=== PATIENT | male | born 1995 | race Two or more races ===

== ENCOUNTER 2024-06-05 20:52 | Inpatient (IN) | payer OTHER ==
[~2024-06-05] VITALS: Ht 167.6 cm; Wt 59.0 kg
--- NOTE | 2024-06-05 22:00 | NUR ---
BIBS FOR A "PIMPLE" ON THE SACRAL AREA.
[2024-06-05] MEDS ORDERED: IOHEXOL-300 100 ML VIAL IV ONE (22:45)
[2024-06-05] MEDS ORDERED: IV NS 0.9% 250 ML IV ONE (22:45)
--- NOTE | 2024-06-05 22:45 | NUR ---
18g Established in the RAC . Blood drawn labeled at bedside and sent to lab for processing
[2024-06-05 23:32] LABS: BASOPHILS % (AUTO) 0.4 % (0.0-2.0); EOSINOPHILS # (AUTO) 0.1 K/uL (0.0-0.7); EOSINOPHILS % (AUTO) 0.7 % (0.0-6.0); HEMATOCRIT 42 % (39-51); HEMOGLOBIN 14.2 g/dL (13.5-17.5); LYMPHOCYTES # (AUTO) 2.8 K/uL (0.8-4.8); LYMPHOCYTES % (AUTO) 35.6 % (20.0-44.0); MEAN CORPUSCULAR HEMOGLOBIN 31 PG (26.0-33.0); MEAN CORPUSCULAR HGB CONC 34 g/dl (31.0-36.0); MEAN CORPUSCULAR VOLUME 92 fL (80-96); MONOCYTES # (AUTO) 0.5 K/uL (0.1-1.30); MONOCYTES % (AUTO) 5.9 % (2.0-12.0); NEUTROPHILS # (AUTO) 4.4 K/uL (1.8-8.9); NEUTROPHILS % (AUTO) 57.4 % (43.0-81.0); PLATELET COUNT (AUTO) 206 K/uL (150-450); RED BLOOD CELL COUNT(AUTO) 4.58 MIL/uL (4.5-6.0); RED CELL DISTRIBUTION WIDTH 13.5 % (11.5-15.0); WHITE BLOOD COUNT (AUTO) 7.8 K/uL (4.3-11.0)
--- NOTE | 2024-06-05 23:34 | NUR ---
Patient to CT via [facility]
[2024-06-05 23:41] LABS: CALCIUM, SERUM 9.1 mg/dL (8.5-10.1); CREATININE 1.3 mg/dL (0.6-1.3); POTASSIUM 3.7 mmol/L (3.5-5.1)
--- NOTE | 2024-06-06 00:20 | NUR ---
DR RIGGINS, SURGOEN AT BED SIDE
--- NOTE | 2024-06-06 00:27 | NUR ---
S/W DOREEN HOLM , PROVIDED W/ VERBAL CLINICALS, AUTH TO ADMIT GIVEN, AUTH#[id number]
[2024-06-06] MEDS: CIPROFLOXACIN IV RTU 400 MG in PREMIX 1 EA IV SCH ×2 (00:30→09:03)
[2024-06-06] MEDS: FLAGYL/NS RTU 500 MG/100 ML PIGGYBACK IV ONE (00:30)
[2024-06-06] MEDS ORDERED: CIPROFLOXACIN IV RTU 200 ML IV ONE (00:39)
[2024-06-06] MEDS ORDERED: METRONIDAZOLE 500MG/ NS 100ML 100 ML IV ONE ×2 (00:39→05:24)
--- NOTE | 2024-06-06 01:03 | NUR ---
report given to AMARIS SALINAS
--- NOTE | 2024-06-06 01:40 | NUR ---
transferred patient to room 314
[2024-06-06 01:42] VITALS: BP 125/77; TEMP 98.8; O2SAT 100
--- NOTE | 2024-06-06 01:42 | NUR ---
[employer] NOTES RECEIVED PATIENT FROM ER VIA [facility], REPORT GIVEN BY EDNA SALINAS. A/OX4 ABLE TO MAKE NEEDS KNOWN. PATIENT ORIENTED TO ROOM AND CALL LIGHT SYSTEM. ON ROOM AIR, TOLERATING WELL. NO RESPIRATORY DISTRESS NOTED. IV ACCESS AT RAC #18G SL, INTACT AND PATENT. VS TAKEN BP AT 125/77 HR 66 RR 18 TEMP 98.8 SPO2 98%. SKIN IS INTACT. NO WOUNDS NOTED. SAFETY PRECAUTIONS OBSERVED. WILL CONTINUE TO MONITOR.
--- NOTE | 2024-06-06 02:11 | NUR ---
RN NOTE TRANSFERRED PT TO ROOM 320-2
[2024-06-06] MEDS ORDERED: MAG HYDROX/AL HYDROX/SIMETH 30 ML UDC PO PRN (02:30)
[2024-06-06] MEDS ORDERED: MAGNESIUM HYDROXIDE 30 ML UDC PO PRN (02:30)
[2024-06-06] MEDS: IV LR 1000 ML 1,000 ML IV SCH ×2 (02:36→19:59)
[2024-06-06 04:45] VITALS: BP 125/77; TEMP 98.8; O2SAT 100
[2024-06-06] MEDS: METRONIDAZOLE 500MG/ NS 100ML 500 MG in PREMIX 1 EA IV SCH (05:43)
--- NOTE | 2024-06-06 06:43 | NUR ---
RN CLOSING NOTES PATIENT LYING ON BED, A/OX 4 ON ROOM AIR, TOLERATING WELL. NOT IN RESPIRATORY DISTRESS, NO PAIN AND DISCOMFORT AT THIS TIME. WITH IV ACCESS AT RIGHT ANTECUBITAL #18G WITH LR AT 100ML/HR. INTACT AND PATENT. DUE MEDICATIONS GIVEN. SAFETY MEASURES OBSERVED AND MAINTAINED. ENDORSED FOR MERE.
[2024-06-06 07:44] LABS: MAGNESIUM 1.8 mg/dL (1.8-2.4); PHOSPHORUS 4.2 mg/dL (2.5-4.9)
[2024-06-06 08:00] VITALS: BP 100/66; TEMP 97.3; O2SAT 99
--- NOTE | 2024-06-06 08:00 | NUR ---
received pt. in rm.npo for surgery.iv infusing.denies discomfort.siderails up
--- NOTE | 2024-06-06 09:00 | NUR ---
texted dr. sarmiento for surgical orders.
[2024-06-06] MEDS: PANTOPRAZOLE 40 MG VIAL IV SCH (09:06)
[2024-06-06 09:20] LABS: INR 1.03 (0.91-1.10); PARTIAL THROMBOPLASTIN TIME 27.3 SEC (24.3-34.3); PROTHROMBIN TIME 10.9 SECS (9.2-11.1)
--- NOTE | 2024-06-06 09:30 | NUR ---
npo since midnight.iv infusing.
[2024-06-06] MEDS: ONDANSETRON HCL/PF 4 MG/2 ML VIAL IVP PRN (12:43)
[2024-06-06] MEDS ORDERED: INSULIN REGULAR, HUMAN 100 UNIT/ML 3 ML VIAL SQ PRN (13:30)
[2024-06-06] MEDS ORDERED: *INSULIN REGULAR(HUMULIN R)HUM 100 UNIT/ML VIAL SQ PRN (13:30)
[2024-06-06] MEDS ORDERED: DEXTROSE 50%-WATER 50 ML DISP.SYRIN IV PRN (13:30)
[2024-06-06 16:00] VITALS: BP 102/60; TEMP 98.4; O2SAT 97
[2024-06-06] MEDS ORDERED: ANESTHESIA TRAY IN PYXIS 1 EA TRAY MC ONE (16:24)
--- NOTE | 2024-06-06 16:50 | NUR ---
left via bed to or.had cipro and flagyl meds.voided.
[2024-06-06] MEDS ORDERED: MIDAZOLAM HCL 2 MG/2ML VIAL ONE (16:55)
[2024-06-06] MEDS ORDERED: FENTANYL PF 100MCG/2ML AMPUL ONE (16:55)
[2024-06-06] MEDS ORDERED: LIDOCAINE 1% INJ 50 ML MDV IJ ONE (17:18)
[2024-06-06] MEDS ORDERED: BUPIVACAINE MPF 0.5% W/EPI INJ 30 ML VIAL ONE ×2 (17:18→17:19)
[2024-06-06] MEDS ORDERED: BUPIVACAINE MPF W/EPI 0.25% 30 ML VIAL ONE (17:19)
--- NOTE | 2024-06-06 18:15 | NUR ---
returned to rm. from surg.vitals stable siderails up hob elevated.bulky dressing dry and intact.instructed pt. not to remove.no c/o pain or nausea. ns iv completed and lr iv started.taking ice chips and sm.sips of water.food ordered
[2024-06-06] MEDS: BLOOD SUGAR DIAGNOSTIC 1 EACH STRIP VI SCH (18:44)
--- NOTE | 2024-06-06 19:30 | NUR ---
MS RN OPENING NOTES RECEIVED PATIENT AWAKE IN BED. PATIENT IS A/O TIMES 4. MALAYSIAN SPEAKER. ABLE TO MAKE NEEDS KNOWN. NO PAIN NOTED. NO SOB NOTED. NO DISTRESS NOTED. ON ROOM AIR. S/P OF THE SURGERY OF THE PERINEAL ABSCESS. DRESSING INTACT AND PATENT. NO BLEEDING NOTED AT THE SITE. IV ACCESS ON THE RAC # 18 INTACT AND RUNNING CURRENTLY LR AT 50 ML/HR. ALL NEEDS ATTENDED. REMINDED THE PATIENT TO PRESS CALL LIGHT FOR ASSISTANCE. PATIENT VERBALIZED UNDERSTANDING. ALL SAFETY MEASURES IN PLACE. BED LOCKED IN THE LOWEST POSITION. CALL LIGHT AND TABLE IN EASY REACH.SIDE RAILS UP TIMES 2. PLAN OF CARE IS ONGOING.
[2024-06-06] MEDS: GABAPENTIN 100 MG CAPSULE PO SCH (19:51)
[2024-06-06] MEDS: CELECOXIB 100 MG CAPSULE PO SCH (19:51)
[2024-06-06] MEDS: ACETAMINOPHEN 325 MG TABLET PO SCH (19:51)
[2024-06-06 20:10] VITALS: BP 108/63; TEMP 97.9; O2SAT 97
[2024-06-06 20:39] VITALS: BP 108/63; TEMP 97.9; O2SAT 97
--- NOTE | 2024-06-06 23:00 | NUR ---
RN NOTES BLOOD SUGAR CHECKED NOTED 81. NO INSULIN COVERAGE.
--- NOTE | 2024-06-07 06:30 | NUR ---
MS RN CLOSING NOTES PATIENT AWAKE IN BED. PATIENT IS A/O TIMES 4. GERMAN SPEAKER. ABLE TO MAKE NEEDS KNOWN. NO PAIN NOTED. NO SOB NOTED. NO DISTRESS NOTED. ON ROOM AIR. S/P OF THE SURGERY OF THE PERINEAL ABSCESS. DRESSING INTACT AND PATENT. NO BLEEDING NOTED AT THE SITE. IV ACCESS ON THE RAC # 18 INTACT AND RUNNING CURRENTLY LR AT 50 ML/HR. ALL NEEDS ATTENDED. BLOOD SUGAR CHECK NOTED 150. PATIENT ATE PRIOR SUGAR CHECK . AND STATED HE NEVER HAD DIABETIC HISTORY. NO INSULIN GIVEN. ALL DUE MEDS GIVEN. REMINDED THE PATIENT TO PRESS CALL LIGHT FOR ASSISTANCE. PATIENT VERBALIZED UNDERSTANDING. ALL SAFETY MEASURES IN PLACE. BED LOCKED IN THE LOWEST POSITION. CALL LIGHT AND TABLE IN EASY REACH.SIDE RAILS UP TIMES 2. PLAN OF CARE IS ONGOING. WILL ENDORSE FOR MERE.
[2024-06-07 06:37] LABS: BASOPHILS % (AUTO) 0.6 % (0.0-2.0); EOSINOPHILS # (AUTO) 0.1 K/uL (0.0-0.7); EOSINOPHILS % (AUTO) 1.2 % (0.0-6.0); HEMATOCRIT 37 % (39-51); HEMOGLOBIN 12.6 g/dL (13.5-17.5); LYMPHOCYTES % (AUTO) 33.1 % (20.0-44.0); MEAN CORPUSCULAR HEMOGLOBIN 31 PG (26.0-33.0); MEAN CORPUSCULAR HGB CONC 34 g/dl (31.0-36.0); MEAN CORPUSCULAR VOLUME 90 fL (80-96); MONOCYTES # (AUTO) 0.7 K/uL (0.1-1.30); MONOCYTES % (AUTO) 10.9 % (2.0-12.0); NEUTROPHILS # (AUTO) 3.3 K/uL (1.8-8.9); NEUTROPHILS % (AUTO) 54.2 % (43.0-81.0); PLATELET COUNT (AUTO) 172 K/uL (150-450); RED BLOOD CELL COUNT(AUTO) 4.13 MIL/uL (4.5-6.0); RED CELL DISTRIBUTION WIDTH 13.5 % (11.5-15.0); WHITE BLOOD COUNT (AUTO) 6.1 K/uL (4.3-11.0)
--- NOTE | 2024-06-07 07:20 | NUR ---
ms rn patient is awake,alert,oriented x4, not in any form of distress, respirations even and unlabored,no sob noted, patient came w/ perianal abscess, s/p incision and drainage by dr. sarmiento w/ dressing intact small old drain noted, denies pain ,on iv antibiotics,no fever,no nausea,tolerating diet well ,all needs attended.
[2024-06-07 07:35] LABS: CALCIUM, SERUM 8.6 mg/dL (8.5-10.1); CREATININE 1.4 mg/dL (0.6-1.3)
[2024-06-07] MEDS ORDERED: IV LR 1000 ML 1,000 ML IV PRN (07:58)
[2024-06-07 08:27] VITALS: BP 87/50; TEMP 97.5; O2SAT 99
[2024-06-07] MEDS: PANTOPRAZOLE 40 MG TABLET.DR PO SCH (09:33)
--- NOTE | 2024-06-07 10:00 | NUR ---
ms rn was seen by dr. sarmiento and devang garcia, anticipating discharge today w/ home health, will follow up.
[2024-06-07] MEDS ORDERED: METR500T PO (11:56)
[2024-06-07] MEDS ORDERED: CIPR500S2 PO (11:56)
[2024-06-07] MEDS ORDERED: GABA100C PO (11:56)
[2024-06-07] MEDS ORDERED: CELE100C PO (11:56)
== END 2024-06-07 19:30 | disposition home or self-care (01) | DRG 226 ==
LOC: ER 20:58 → MED 06-06 00:49
PROVIDERS: ADMIT Student in an Organized Health Care Education/Training Program; ATTEND Student in an Organized Health Care Education/Training Program
PROC: 0D9Q0ZZ Drainage of Anus, Open Approach (ICD-10-PCS; principal; 2024-06-06)
DX: K61.0 Anal abscess (principal); N17.9 Acute kidney failure, unspecified; E11.9 Type 2 diabetes mellitus without complications; D64.9 Anemia, unspecified; M89.8X9 Other specified disorders of bone, unspecified site
CPT/HCPCS: 36415; 72193-TC; 80048-TC; 82962-TC; 83735-TC; 84100-TC; 85025-TC; 85730-TC; 98960; A4216; A4223; A6253; G0378; J0690; J0744; J1815; J1885; J2250; J2405; J2470; J2704; J2765; J3010; J3490; J7030; J7050; J7120; Q9967

== ENCOUNTER 2025-04-01 19:30 | Emergency (ER) | payer OTHER ==
[~2025-04-01] VITALS: Ht 167.6 cm; Wt 67.1 kg
[~2025-04-01 19:30] MED LIST: CELE100C PO; CIPR500S2 PO; GABA100C PO; METR500T PO
[2025-04-01 19:40] VITALS: BP 124/70; TEMP 98.4; O2SAT 97
== END 2025-04-01 20:00 | disposition home or self-care (01) ==
LOC: ER 19:30
DX: Z20.2 Contact with and (suspected) exposure to infections with a predominantly sexual mode of transmission (principal); Z79.899 Other long term (current) drug therapy